=== PATIENT | male | born 1965 | race Caucasian/White ===

== ENCOUNTER 2016-12-01 13:55 | Emergency (ER) | payer SELFPAY ==
[~2016-12-01] VITALS: Ht 175.3 cm; Wt 61.0 kg
[2016-12-01] MEDS ORDERED: NS 1,000 ML IV ONE ×2 (14:30)
[2016-12-01] MEDS ORDERED: ACETAMINOPHEN 325 MG TAB PO ONE (14:30)
[2016-12-01 14:56] LABS: BASO % 0.3 % (0.0-1.0); EOS # 0.4 K/mm3 (0.0-0.50); EOS % 4.1 % (0.0-3.0); LARGE UNSTAINED CELL # 0.1 K/mm3 (0.0-0.4); LARGE UNSTAINED CELL % 0.7 % (0.0-4.0); LYMPH # 0.6 K/mm3 (1.5-4.5); LYMPH % 6.2 % (24.0-44.0); MEAN CORPUSCULAR HGB CONC 35.1 g/dl (32.0-36.5); MEAN CORPUSCULAR VOLUME 88.3 fl (80.0-96.0); MONO # 0.2 K/mm3 (0.0-0.8); MONO % 2.2 % (0.0-5.0); NEUTROPHILS # 7.8 K/mm3 (1.8-7.7); NEUTROPHILS % 86.6 % (36.0-66.0); PLATELET COUNT, AUTOMATED 196 k/mm3 (150-450); RED CELL DISTRIBUTION WIDTH 12.8 % (11.5-14.5)
--- NOTE | 2016-12-01 15:34 | REP ---
Chest two views HISTORY: Fever Comparison: 11/22/2008 The lungs are clear. The heart is normal in size. The pulmonary vasculature is normal in appearance. The bony structure is intact. IMPRESSION: No acute disease. Signed by William Saunders MD 12/01/2016 03:26 P
[2016-12-01 15:58] LABS: ALBUMIN 3.9 GM/DL (3.2-5.2); ALKALINE PHOSPHATASE 65 U/L (45-117); ALT/SGPT 40 U/L (12-78); ANION GAP 5 MEQ/L (8-16); AST/SGOT 25 U/L (15-37); BILIRUBIN,DIRECT 0.2 MG/DL (0.0-0.2); BILIRUBIN,TOTAL 0.7 MG/DL (0.2-1.0); BLOOD UREA NITROGEN 19 MG/DL (7-18); CALCIUM LEVEL 8.7 MG/DL (8.5-10.1); CARBON DIOXIDE LEVEL 27 MEQ/L (21-32); CHLORIDE LEVEL 108 MEQ/L (98-107); CREATININE FOR GFR 1.07 MG/DL (0.70-1.30); GLOMERULAR FILTRATION RATE > 60.0 (>56); GLUCOSE, FASTING 86 MG/DL (70-105); POTASSIUM SERUM 4.3 MEQ/L (3.5-5.1); SODIUM LEVEL 140 MEQ/L (136-145); TOTAL PROTEIN 6.9 GM/DL (6.4-8.2)
--- NOTE | 2016-12-01 16:30 | REP ---
INGUINAL ULTRASOUND: Bilateral inguinal ultrasound performed to evaluate for possible inguinal hernia. Imaging is performed at rest and with and without Valsalva maneuver. There is no evidence of inguinal hernia bilaterally. In the left inguinal region somewhat laterally is a lymph node which measures 2.6 x 0.5 x 1.5 cm. No other mass or cyst of fluid collection is seen. IMPRESSION: No evidence of inguinal hernia. Prominent lymph node left inguinal region. Signed by Dillon Stevens MD 12/01/2016 04:44 P
[2016-12-01 17:30] VITALS: BP 112/69
[2016-12-01] MEDS ORDERED: MAGIC MOUTHWASH SUSPENSION BTL SS ONE (17:30)
== END 2016-12-01 17:48 | disposition home or self-care (01) ==
LOC: M ED 13:55
DX: J02.9 Acute pharyngitis, unspecified (principal); R50.9 Fever, unspecified; R59.0 Localized enlarged lymph nodes; M79.89 Other specified soft tissue disorders; F17.210 Nicotine dependence, cigarettes, uncomplicated

== ENCOUNTER 2016-12-02 13:09 | Observation (INO) | payer SELFPAY ==
[~2016-12-02] VITALS: Ht 175.3 cm; Wt 61.3 kg
[2016-12-02] MEDS ORDERED: methylPREDNISolone INJ 125 MG/2 ML VIAL (J2930) IV ONE (14:15)
[2016-12-02 14:45] LABS: BASO % 0.4 % (0.0-1.0); EOS # 0.5 K/mm3 (0.0-0.50); EOS % 5.6 % (0.0-3.0); LARGE UNSTAINED CELL # 0.2 K/mm3 (0.0-0.4); LARGE UNSTAINED CELL % 1.9 % (0.0-4.0); LYMPH # 0.7 K/mm3 (1.5-4.5); LYMPH % 7.6 % (24.0-44.0); MEAN CORPUSCULAR HEMOGLOBIN 30.9 pg (27.0-33.0); MEAN CORPUSCULAR HGB CONC 34.4 g/dl (32.0-36.5); MEAN CORPUSCULAR VOLUME 89.7 fl (80.0-96.0); MONO # 0.6 K/mm3 (0.0-0.8); MONO % 6.3 % (0.0-5.0); NEUTROPHILS # 7.4 K/mm3 (1.8-7.7); NEUTROPHILS % 78.1 % (36.0-66.0); PLATELET COUNT, AUTOMATED 195 k/mm3 (150-450); RED CELL DISTRIBUTION WIDTH 12.7 % (11.5-14.5); WHITE BLOOD COUNT 9.5 K/mm3 (4.0-10.0)
[2016-12-02 14:54] LABS: INR 0.96
[2016-12-02 15:03] LABS: CONTROL LINE MONO INT CTR LINE PRESENT
[2016-12-02 15:10] LABS: ALBUMIN 3.4 GM/DL (3.2-5.2); ALBUMIN/GLOBULIN RATIO 0.97 (1.00-1.93); ALKALINE PHOSPHATASE 65 U/L (45-117); ALT/SGPT 37 U/L (12-78); ANION GAP 2 MEQ/L (8-16); AST/SGOT 21 U/L (15-37); BILIRUBIN,TOTAL 0.6 MG/DL (0.2-1.0); BLOOD UREA NITROGEN 16 MG/DL (7-18); CALCIUM LEVEL 8.6 MG/DL (8.5-10.1); CARBON DIOXIDE LEVEL 31 MEQ/L (21-32); CHLORIDE LEVEL 108 MEQ/L (98-107); CREATININE FOR GFR 0.92 MG/DL (0.70-1.30); GLOMERULAR FILTRATION RATE > 60.0 (>56); GLUCOSE, FASTING 95 MG/DL (70-105); POTASSIUM SERUM 4.2 MEQ/L (3.5-5.1); SODIUM LEVEL 141 MEQ/L (136-145); TOTAL PROTEIN 6.9 GM/DL (6.4-8.2)
[2016-12-02] MEDS ORDERED: CLINDAMYCIN 600 MG in APPROPRIATE DILUENT 1 EA IV ONE (15:45)
[2016-12-02] MEDS ORDERED: KETOROLAC 30 MG/ML VIAL (J1885) IV ONE (15:45)
[2016-12-02] MEDS ORDERED: ACETAMINOPHEN TAB 650MG DOSE (2X325MG) PO PRN (17:15)
--- NOTE | 2016-12-02 17:39 | HPEPDOC ---
General Date of Admission 12/02/16 Chief Complaint The patient is a 51-year-old male Presented to the ER with complaints of rash on the back of his knees, elbows and bilateral upper extremity swelling. History of Present Illness Patient is a 51 year old male with no PMHx who presented to the ER with complaints of rash on the back of his knees, elbows and bilateral upper extremity swelling. Patient has noted that he has had pain and swelling in his lower extremities intermittently for the last 6-8 months. 1 month ago he had a tooth problem and was taking Naproxen for 1 week duration for that. It since resolved. He noted that now over the last 1 day he has been having throat pain and some difficulty breathing yesterday, but has resolved today. He denies any chest pain , shortness of breath or palpitations at this time. He does note a sore throat and non-productive cough. Reports some subjective fevers. No chills. He reports that yesterday he also had this pain at the back of his legs with some surrounding redness. Today he noticed redness around his left elbow that has been itchy. He denies any new medications. Has not had this problem in the past. Has not taken any new foods. He denies any nausea, vomiting, abdominal pain, constipation or diarrhea. Home Medications Scheduled Doxycycline Hyclate (Doxycycline) 100 Mg Cap, 100 MG PO Q12H Nicotine (Nicotine Transdermal Syst) 14 Mg/24 Hr Dis, 1 PATCH TD DAILY Prednisone (Prednisone) 20 Mg Tab, 20 MG PO BID Allergies Coded Allergies: No Known Drug Allergy (Verified Allergy, Unknown, 12/01/16) Past Medical History Medical History None reported Surgical History Left eye surgery 2/2 trauma Right ankle injury Abdominal hernia repair Family History - Mother with HTN, DM, CAD, DLP - Father at age 74 with CAD, PVD - No history of malignancies Social History - Denies the use of illicit drugs; Social alcohol use, Smoker of >40 years at 1ppd - Denies recent travel or sick contacts - Lives with mother - Occupation; Works at [employer] Review of Symptoms Other systems Constitutional: Positive weight loss of 15 lbs over 2 months, No change in appetite, or recent trauma Eyes: No visual changes or eye pain Ears, Nose, Throat: Denies nose bleeds, or difficulty swallowing Cardiovascular: Denies chest pain, sweating, or orthopnea Respiratory: Positive non-productive cough, No wheezing, or shortness of breath at this time GI: Mitchell nausea, vomiting, abdominal pain, diarrhea or constipation : Denies pain with urination or frequency Musculoskeletal: Positive swelling of bilateral upper extremities Neuro / Psych: Denies muscle weakness or sensory loss Skin: Rash at back of knees and elbows All other review of systems negative; otherwise stated in history of present illness Screening: - Colonoscopy never done Vital Signs - Vitals: BP 113/68, HR 73, RR 18, Sat 97%RA, Temp 99.4F - General: Lying in bed, No acute distress, Speaking in full sentences, AAOx3 - HEENT: NC, AT, PERRLA - CVS: RRR, +S1S2, - Lungs: Fair air entry bilaterally, No wheezing / rales / rhonchi appreciated - Abdomen: Soft, Non-distended, Non-tender, + Bowel sounds x 4 - Extremities: No lower extremity pitting edema, No calf tenderness - Neuro: No focal motor or sensory deficit - Skin: Erythema at bilateral knees (posteriorly), rash at left elbow; erythematous, warm, no skin breaks Laboratory Data Labs 24H Laboratory Tests 2 12/02/16 14:33: White Blood Count 9.5, Red Blood Count 5.02, Hemoglobin 15.5, Hematocrit 45.0, Mean Corpuscular Volume 89.7, Mean Corpuscular Hemoglobin 30.9, Mean Corpuscular Hemoglobin Concent 34.4, Red Cell Distribution Width 12.7, Platelet Count 195, Neutrophils (%) (Auto) 78.1H, Lymphocytes (%) (Auto) 7.6L, Monocytes (%) (Auto) 6.3H, Eosinophils (%) (Auto) 5.6H, Basophils (%) (Auto) 0.4, Neutrophils # (Auto) 7.4, Lymphocytes # (Auto) 0.7L, Monocytes # (Auto) 0.6, Eosinophils # (Auto) 0.5, Basophils # (Auto) 0.0, Large Unclassified Cells % 1.9 , Large Unclassified Cells # 0.2, Prothrombin Time 12.9, Prothromb Time International Ratio 0.96, Activated Partial Thromboplast Time 31.9, Anion Gap 2L , Glomerular Filtration Rate > 60.0, Lactic Acid Level 0.8, Blood Urea Nitrogen 16, Creatinine 0.92, Sodium Level 141, Potassium Level 4.2, Chloride Level 108H , Carbon Dioxide Level 31, Calcium Level 8.6, Aspartate Amino Transf (AST/SGOT) 21, Alanine Aminotransferase (ALT/SGPT) 37, Alkaline Phosphatase 65, Total Bilirubin 0.6, Total Protein 6.9, Albumin 3.4, C-Reactive Protein, Quantitative 5.80H, Albumin/Globulin Ratio 0.97L, Monoscreen NEGATIVE CBC/BMP Laboratory Tests 12/02/16 14:33 Red Blood Count 5.02, Mean Corpuscular Volume 89.7, Mean Corpuscular Hemoglobin 30.9, Mean Corpuscular Hemoglobin Concent 34.4, Red Cell Distribution Width 12.7 , Neutrophils (%) (Auto) 78.1 H, Lymphocytes (%) (Auto) 7.6 L, Monocytes (%) ( Auto) 6.3 H, Eosinophils (%) (Auto) 5.6 H, Basophils (%) (Auto) 0.4, Neutrophils # (Auto) 7.4, Lymphocytes # (Auto) 0.7 L, Monocytes # (Auto) 0.6, Eosinophils # (Auto) 0.5, Basophils # (Auto) 0.0, Calcium Level 8.6, Aspartate Amino Transf (AST/SGOT) 21, Alanine Aminotransferase (ALT/SGPT) 37, Alkaline Phosphatase 65, Total Bilirubin 0.6, Total Protein 6.9, Albumin 3.4 Plan / VTE VTE Prophylaxis Ordered?: Yes Plan Plan Pharyngitis possibly 2/2 viral etiology, possibly 2/2 bacterial etiology - Presented with sore throat and non-productive cough - Physical reveals no respiratory compromise and saturation is within normal range - No lab abnormalities - Will cover for URTI with Levaquin 500mg x 5 days Subjective upper extremity swelling with rash at posterior knees and left elbow - Etiology unclear, possibly 2/2 viral illnesses - Elevation in CRP - Will trend - Will start low dose prednisone Smoker - Advised smoking cessation - Provided nicotine patch DVT prophylaxis - Will start SCDs NICOLASA VO MD Dec 02, 2016 17:39
[2016-12-02] MEDS: LevoFLOXacin IV 500 MG in APPROPRIATE DILUENT 1 EA IV SCH (18:00)
[2016-12-02 21:15] VITALS: BP 121/64
[2016-12-02] MEDS ORDERED: KETOROLAC 30 MG/ML VIAL (J1885) IV PRN (21:30)
[2016-12-02] MEDS: NICOTINE 14 MG/24 HR TRANSDERMAL TD SCH (21:54)
[2016-12-02] MEDS: predniSONE 20 MG TAB PO SCH (21:54)
[2016-12-03] VITALS: BP 123/57
[2016-12-03 04:00] VITALS: BP 122/62
[2016-12-03 06:30] LABS: BASO % 0.2 % (0.0-1.0); EOS % 0.4 % (0.0-3.0); LARGE UNSTAINED CELL # 0.1 K/mm3 (0.0-0.4); LARGE UNSTAINED CELL % 0.6 % (0.0-4.0); LYMPH # 0.7 K/mm3 (1.5-4.5); LYMPH % 4.9 % (24.0-44.0); MEAN CORPUSCULAR HEMOGLOBIN 30.9 pg (27.0-33.0); MEAN CORPUSCULAR VOLUME 88.2 fl (80.0-96.0); MONO # 0.4 K/mm3 (0.0-0.8); MONO % 3.1 % (0.0-5.0); NEUTROPHILS # 11.3 K/mm3 (1.8-7.7); NEUTROPHILS % 90.8 % (36.0-66.0); PLATELET COUNT, AUTOMATED 206 k/mm3 (150-450); RED CELL DISTRIBUTION WIDTH 12.9 % (11.5-14.5); WHITE BLOOD COUNT 12.5 K/mm3 (4.0-10.0)
[2016-12-03 06:47] LABS: REASON FOR REVIEW COMPREHENSIVE REVIEW
[2016-12-03 07:02] LABS: ALBUMIN 3.1 GM/DL (3.2-5.2); ALBUMIN/GLOBULIN RATIO 0.89 (1.00-1.93); ALKALINE PHOSPHATASE 65 U/L (45-117); ALT/SGPT 43 U/L (12-78); ANION GAP 5 MEQ/L (8-16); AST/SGOT 27 U/L (15-37); BILIRUBIN,TOTAL 0.3 MG/DL (0.2-1.0); BLOOD UREA NITROGEN 19 MG/DL (7-18); CALCIUM LEVEL 8.4 MG/DL (8.5-10.1); CARBON DIOXIDE LEVEL 26 MEQ/L (21-32); CHLORIDE LEVEL 108 MEQ/L (98-107); CREATININE FOR GFR 0.77 MG/DL (0.70-1.30); GLOMERULAR FILTRATION RATE > 60.0 (>56); GLUCOSE, FASTING 131 MG/DL (70-105); MAGNESIUM LEVEL 2.2 MG/DL (1.8-2.4); POTASSIUM SERUM 4.3 MEQ/L (3.5-5.1); SODIUM LEVEL 139 MEQ/L (136-145); TOTAL PROTEIN 6.6 GM/DL (6.4-8.2)
[2016-12-03 08:00] VITALS: BP 107/57
[2016-12-03] MEDS: NICOTINE 14 MG/24 HR TRANSDERMAL TD SCH (08:56)
[2016-12-03] MEDS: predniSONE 20 MG TAB PO SCH ×2 (08:56→20:26)
[2016-12-03 12:00] VITALS: BP 125/65
[2016-12-03] MEDS ORDERED: hydrOXYzine 25 MG TAB PO PRN (12:15)
[2016-12-03 16:00] VITALS: BP 123/58
--- NOTE | 2016-12-03 16:08 | IPN ---
DATE: 12/03/2016 Mr. Varma is feeling somewhat better today. Swelling in his hands, arms, around his left elbow particularly has improved. Sore throat has improved. No chest pain, no shortness of breath. Tolerating a diet. Has not ordered breakfast yet today. Temperature 99, pulse 61, respiratory rate 16, blood pressure 107/57, 100% on room air. Intake and output (I and O) notable for a negative fluid balance -25. He is awake, appropriately interactive. Pleasantly conversant. Somewhat flattened affect. Mucous membranes moist. Right tonsil is larger than the left. Somewhat erythematous with no exudate. There is some tenderness in the right anterior cervical nodes, although I do not appreciate any enlarged nodes at this point. No axillary nodes. I do not appreciate any inguinal nodes as have been previously noted. There is an area of excoriation in the lateral aspect of his right knee and the left elbow. HEART: Distant sounding. Normal S1, S2. Not tachycardic. ABDOMEN: Soft, doughy, nontender. White cell count is 12.5, hemoglobin 13.9, platelets of 206, peripheral smear is unremarkable for blasts. BUN 19, creatinine 0.77. C-reactive protein is 5.69, RAHEEL is pending. Franklin is negative. ASSESSMENT: This is a 51-year-old who presented with rash and pharyngitis. PLAN: 1. Infectious disease. The patient is improving with the use of steroids and quinolones. These are continued. Will also check Bartonella as the patient has a number of new kittens and also check West Nile as the patient has had wooded area around his house. 2. The patient is a smoker. We discussed smoking cessation at length. He would like to get a nicotine patch. Would like to use this as an opportunity to quit. 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
[2016-12-03] MEDS: LevoFLOXacin IV 500 MG in APPROPRIATE DILUENT 1 EA IV SCH (17:32)
[2016-12-03 20:00] VITALS: BP 122/62
[2016-12-04] VITALS: BP 117/67
[2016-12-04 04:00] VITALS: BP 125/73
[2016-12-04 06:57] LABS: BASO % 0.3 % (0.0-1.0); EOS # 0.2 K/mm3 (0.0-0.50); EOS % 2.1 % (0.0-3.0); LARGE UNSTAINED CELL # 0.2 K/mm3 (0.0-0.4); LARGE UNSTAINED CELL % 1.9 % (0.0-4.0); LYMPH # 1.2 K/mm3 (1.5-4.5); LYMPH % 8.1 % (24.0-44.0); MEAN CORPUSCULAR HEMOGLOBIN 30.8 pg (27.0-33.0); MEAN CORPUSCULAR HGB CONC 34.8 g/dl (32.0-36.5); MEAN CORPUSCULAR VOLUME 88.3 fl (80.0-96.0); MONO # 0.5 K/mm3 (0.0-0.8); MONO % 3.9 % (0.0-5.0); NEUTROPHILS # 10.1 K/mm3 (1.8-7.7); NEUTROPHILS % 83.7 % (36.0-66.0); PLATELET COUNT, AUTOMATED 215 k/mm3 (150-450); RED CELL DISTRIBUTION WIDTH 12.8 % (11.5-14.5); WHITE BLOOD COUNT 12.1 K/mm3 (4.0-10.0)
[2016-12-04 07:10] LABS: ALBUMIN/GLOBULIN RATIO 0.88 (1.00-1.93); ALKALINE PHOSPHATASE 58 U/L (45-117); ALT/SGPT 68 U/L (12-78); ANION GAP 5 MEQ/L (8-16); AST/SGOT 38 U/L (15-37); BILIRUBIN,TOTAL 0.2 MG/DL (0.2-1.0); BLOOD UREA NITROGEN 17 MG/DL (7-18); CALCIUM LEVEL 8.7 MG/DL (8.5-10.1); CARBON DIOXIDE LEVEL 27 MEQ/L (21-32); CHLORIDE LEVEL 103 MEQ/L (98-107); GLOMERULAR FILTRATION RATE > 60.0 (>56); GLUCOSE, FASTING 126 MG/DL (70-105); MAGNESIUM LEVEL 2.1 MG/DL (1.8-2.4); POTASSIUM SERUM 4.3 MEQ/L (3.5-5.1); SODIUM LEVEL 135 MEQ/L (136-145); TOTAL PROTEIN 6.4 GM/DL (6.4-8.2)
[2016-12-04 08:00] VITALS: BP 125/65
[2016-12-04] MEDS ORDERED: NICO14PA TD (08:17)
[2016-12-04] MEDS ORDERED: PRED20TA PO (08:17)
[2016-12-04] MEDS ORDERED: DOXY-278 PO (08:17)
[2016-12-04] MEDS: predniSONE 20 MG TAB PO SCH (08:22)
[2016-12-04] MEDS: NICOTINE 14 MG/24 HR TRANSDERMAL TD SCH (08:23)
--- NOTE | 2016-12-06 02:21 | DSES ---
DATE OF ADMISSION: 12/02/2016 DATE OF DISCHARGE: 12/04/2016 No specialists involved in care. No complications during the stay. No procedures performed during the stay. DISCHARGE DIAGNOSES: 1. Pharyngitis. 2. Rash. 3. Tobacco addiction. The following is a summary of his hospitalization: This is a 51-year-old who presented with a rash on his knees, elbows, upper extremity associated with pharyngitis, left inguinal adenopathy, and right anterior cervical adenopathy. Of note, he had new kittens at home. Was started on steroids and antibiotics, improved markedly. Peripheral smear was done, which was unremarkable. C-reactive protein (CRP) was initially elevated at 5.8. It dropped to 2.0. RAHEEL is pending at the time of discharge. Bartonella and West Nile testing is pending. Blood cultures were negative. On day of discharge, he is feeling well. No complaints of pain, chest pain, shortness of breath. His rash and swelling has improved. His adenopathy has resolved, although the right tonsil is still somewhat bigger than the left. DISCHARGE INSTRUCTIONS: Include the following: Followup with Heri Becerra as scheduled. Diet and activity as tolerated. Prescribed doxycycline 100 mg by mouth every 12 hours for 12 pills. Given a nicotine transdermal patch, 14 mg topically daily, number 30 and prednisone 40 mg a day for 4 days.
[2016-12-09 00:09] LABS: BARTONELLA DNA PCR Negative (Negative); WEST NILE VIRUS ANTIBODY IgM Negative (Negative)
== END 2016-12-04 10:15 | disposition home or self-care (01) ==
LOC: M ED 13:09 → M ED INP 17:15 → M PED 21:11
PROVIDERS: ADMIT Internal Medicine; ATTEND Internal Medicine
DX: J02.9 Acute pharyngitis, unspecified (principal); R21 Rash and other nonspecific skin eruption; F17.210 Nicotine dependence, cigarettes, uncomplicated
CPT/HCPCS: 36415; 80053; 83605; 83735; 85025; 85610; 85730; 86038; 86140; 86308; 86788; 86789; 87040; 87471; 96374; 96375; 96376; 99284; J1885; J1956; J2930

== ENCOUNTER → 2017-06-09 | Outpatient (REF) | payer BC | LOC: M LAB REF 12:02 | DX: J02.9 Acute pharyngitis, unspecified (principal) | CPT/HCPCS: 87081 ==

== ENCOUNTER → 2025-01-08 | Outpatient (REF) | payer OTHER ==
[~2025-01-08] MED LIST: DOXY-440 PO; NICO14PA TD; PRED20TA PO
[2025-01-08 15:33] LABS: BASO # 0.0 10^3/uL (0.0-0.2); BASO % 0.5 % (0.0-1.0); EOS # 0.2 10^3/uL (0.0-0.5); EOS % 2.6 % (0.0-3.0); LYMPH # 1.9 10^3/uL (1.5-5.0); LYMPH % 23.0 % (24.0-44.0); MONO # 0.6 10^3/uL (0.0-0.8); MONO % 7.1 % (2.0-8.0); NEUTROPHILS # 5.4 10^3/uL (1.5-8.5); NEUTROPHILS % 66.4 % (36.0-66.0); PLATELET COUNT, AUTOMATED 232 10^3/uL (150-450)
[2025-01-08 15:35] LABS: ALT/SGPT 34.0 U/L (7.0-40); AST/SGOT 25.0 U/L (<34); CALCIUM LEVEL 9.8 MG/DL (8.5-10.1); CARBON DIOXIDE LEVEL 29.0 MMOL/L (20-31); CHLORIDE LEVEL 105.0 MMOL/L (98-107); CREATININE FOR GFR 1.06 MG/DL (0.70-1.30); GLOMERULAR FILTRATION RATE 81.4 (>56); POTASSIUM SERUM 4.7 MMOL/L (3.5-5.1); SODIUM LEVEL 142.0 MMOL/L (136-145)
== END ==
LOC: M LAB REF 14:24
PROVIDERS: ATTEND Pediatrics
DX: R00.1 Bradycardia, unspecified (principal)